=== PATIENT | female | born 1960 | race African-American/Black ===

== ENCOUNTER 2017-07-27 19:15 | Emergency (ER) | payer OTHER, SELFPAY ==
[2017-07-27 20:36] LABS: #Basophils 0.1 thou/uL (0.0-0.2); #Eosinphils 0.2 thou/uL (0.0-0.7); #Lymphocytes 3.2 thou/uL (1.20-3.40); #Monocytes 0.6 thou/uL (0.11-0.59); #Neutrophils 4.3 thou/uL (1.40-6.50); %Eosinophils 2.3 % (0.0-10.0); %Lymphocytes 38.2 % (21.0-51.0); %Monocytes 7.1 % (0.0-10.0); %Neutrophils 51.3 % (42.0-75.0); Hemoglobin 11.6 g/dL (12.0-16.0); Mean Corpuscular HGB CONC 32.8 g/dL (32.0-36.0); Mean Corpuscular Hemoglobin 30.2 pg (27.0-31.0); Mean Corpuscular Volume 91.9 fl (81.0-99.0); Mean Platelet Volume 8.3 fL (7.4-10.4); Platelet Count 245 thou/uL (130-400); RBC Distribution Width 12.5 % (11.5-14.5); Red Blood Cell (RBC) Count 3.86 mill/uL (4.20-5.40); White Blood Cell (WBC) Count 8.3 thou/uL (4.8-10.8)
[2017-07-27 20:43] LABS: ALT (SGPT) 21 U/L (8-55); AST (SGOT) 24 U/L (5-34); Albumin 3.9 g/dL (3.5-5.0); Alkaline Phosphatase 86 U/L (40-150); Anion Gap 14 mmol/L (10-20); BUN (Urea Nitrogen) 28 mg/dL (9.8-20.1); Bilirubin, Total 0.9 mg/dL (0.2-1.2); CK (CPK) 130 U/L (29-168); Calc. Creatinine Clearance 0 mL/min (70-130); Calcium 9.9 mg/dL (7.8-10.44); Carbon Dioxide 28 mmol/L (22-29); Chloride 102 mmol/L (98-107); Estimated GFR-MDRD 49; Globulin 3.7 g/dL (2.4-3.5); Glucose 151 mg/dL (70-105); Potassium 3.7 mmol/L (3.5-5.1); Protein, Total 7.6 g/dL (6.0-8.3); Sodium 140 mmol/L (136-145)
[2017-07-27 20:46] LABS: CKMB 1.8 ng/mL (0-6.6); Troponin I 0.049 ng/mL (< 0.028)
--- NOTE | 2017-07-27 20:47 | RAD ---
PORTABLE CHEST ONE VIEW: Date: 07-27-17 Time: 8:15 p.m. History: Chest pain, shortness of breath. FINDINGS/IMPRESSION: Comparison is made with exam of 10-18-16. The heart size is normal. No lobar consolidation, pneumothoraces or pleural effusions are seen. Mild pulmonary vascular congestion is seen. POS: [facility]
[2017-07-27 23:17] LABS: Troponin I 0.064 ng/mL (< 0.028)
== END 2017-07-28 00:10 | disposition home or self-care (01) ==
LOC: ERS 19:15
DX: R07.89 Other chest pain (principal); E11.9 Type 2 diabetes mellitus without complications; I11.0 Hypertensive heart disease with heart failure; I50.9 Heart failure, unspecified; Z79.4 Long term (current) use of insulin; Z79.899 Other long term (current) drug therapy
CPT/HCPCS: 36415; 71045; 80053; 82553; 83880; 84484; 85025; 93005

== ENCOUNTER 2017-08-20 09:09 | Emergency (ER) | payer OTHER, SELFPAY ==
[2017-08-20] MEDS ORDERED: Proparacaine 0.5% Opth 15 ML BOT ONE (09:35)
[2017-08-20] MEDS ORDERED: Fluorescein Opthalmic Strip ONE (09:36)
== END 2017-08-20 10:38 | disposition home or self-care (01) ==
LOC: ERS 09:09
DX: S05.01XA Injury of conjunctiva and corneal abrasion without foreign body, right eye, initial encounter (principal); I11.0 Hypertensive heart disease with heart failure; I50.9 Heart failure, unspecified; E11.9 Type 2 diabetes mellitus without complications; X58.XXXA Exposure to other specified factors, initial encounter
CPT/HCPCS: 99283

== ENCOUNTER 2018-05-18 20:15 | Observation (INO) | payer SELFPAY ==
[2018-05-18 20:59] LABS: #Eosinphils 0.2 thou/uL (0.0-0.7); #Lymphocytes 3.5 thou/uL (1.20-3.40); #Monocytes 0.6 thou/uL (0.11-0.59); #Neutrophils 3.7 thou/uL (1.40-6.50); %Basophils 0.4 % (0.0-1.0); %Eosinophils 2.9 % (0.0-10.0); %Lymphocytes 42.7 % (21.0-51.0); %Monocytes 7.9 % (0.0-10.0); %Neutrophils 46.2 % (42.0-75.0); Hemoglobin 11.5 g/dL (12.0-16.0); Mean Corpuscular HGB CONC 33.2 g/dL (32.0-36.0); Mean Corpuscular Hemoglobin 29.8 pg (27.0-31.0); Mean Corpuscular Volume 89.6 fL (78.0-98.0); Mean Platelet Volume 8.1 fL (7.4-10.4); Platelet Count 261 thou/uL (130-400); RBC Distribution Width 12.5 % (11.5-14.5); Red Blood Cell (RBC) Count 3.86 mill/uL (4.20-5.40); White Blood Cell (WBC) Count 8.1 thou/uL (4.8-10.8)
[2018-05-18 21:31] LABS: CKMB 1.9 ng/mL (0-6.6); Troponin I 0.042 ng/mL (< 0.028)
[2018-05-18 21:35] LABS: Anion Gap 14 mmol/L (10-20); BUN (Urea Nitrogen) 31 mg/dL (9.8-20.1); Calc. Creatinine Clearance 0 mL/min (70-130); Calcium 9.2 mg/dL (7.8-10.44); Carbon Dioxide 26 mmol/L (22-29); Chloride 102 mmol/L (98-107); Estimated GFR-MDRD 44; Glucose 169 mg/dL (70-105); Potassium 3.6 mmol/L (3.5-5.1); Sodium 138 mmol/L (136-145)
[2018-05-18] MEDS ORDERED: Albuterol Sulfate 2.5 mg/3 ml Neb ONE (21:40)
[2018-05-18] MEDS ORDERED: Ondansetron ODT 4 MG TAB PO PRN (23:26)
[2018-05-18] MEDS ORDERED: Acetaminophen 325 MG TAB PO PRN (23:26)
[2018-05-18] MEDS ORDERED: Ondansetron PF 4 MG/2 ML Vial IVP PRN (23:26)
[2018-05-18] MEDS ORDERED: Sodium Chloride 0.9% 1,000 ML IV SCH (23:30)
[2018-05-18] MEDS ORDERED: Dextrose 50% Abboject 50 ML SYRINGE SLOW IVP PRN (23:32)
[2018-05-18] MEDS ORDERED: Dextrose 5% in Water 1,000 ML IV PRN (23:32)
[2018-05-18] MEDS ORDERED: HumaLOG 300 UNITS/3 ML VIAL SC PRN ×2 (23:32)
[2018-05-19 00:42] LABS: Troponin I 0.057 ng/mL (< 0.028)
[2018-05-19 03:21] LABS: #Basophils 0.1 thou/uL (0.0-0.2); #Eosinphils 0.2 thou/uL (0.0-0.7); #Lymphocytes 2.7 thou/uL (1.20-3.40); #Monocytes 0.5 thou/uL (0.11-0.59); #Neutrophils 3.2 thou/uL (1.40-6.50); %Basophils 1.1 % (0.0-1.0); %Eosinophils 3.1 % (0.0-10.0); %Lymphocytes 39.8 % (21.0-51.0); %Neutrophils 48.1 % (42.0-75.0); Hemoglobin 11.3 g/dL (12.0-16.0); Mean Corpuscular HGB CONC 32.5 g/dL (32.0-36.0); Mean Corpuscular Hemoglobin 29.7 pg (27.0-31.0); Mean Corpuscular Volume 91.3 fL (78.0-98.0); Mean Platelet Volume 8.3 fL (7.4-10.4); Platelet Count 243 thou/uL (130-400); RBC Distribution Width 12.7 % (11.5-14.5); Red Blood Cell (RBC) Count 3.82 mill/uL (4.20-5.40); White Blood Cell (WBC) Count 6.7 thou/uL (4.8-10.8)
[2018-05-19 03:40] LABS: Anion Gap 13 mmol/L (10-20); BUN (Urea Nitrogen) Less than 4 mg/dL (9.8-20.1); Calc. Creatinine Clearance 91 mL/min (70-130); Calcium 9.3 mg/dL (7.8-10.44); Carbon Dioxide 27 mmol/L (22-29); Chloride 105 mmol/L (98-107); Estimated GFR-MDRD 73; Glucose 179 mg/dL (70-105); Magnesium 2.3 mg/dL (1.6-2.6); Phosphorus 3.8 mg/dL (2.3-4.7); Potassium 3.5 mmol/L (3.5-5.1); Sodium 141 mmol/L (136-145); Uric Acid 10.4 mg/dL (2.6-6.0)
[2018-05-19 03:43] LABS: Troponin I 0.058 ng/mL (< 0.028)
[2018-05-19 05:03] LABS: Creatinine, Urine 124.69 mg/dL (47-110)
[2018-05-19] MEDS: Nitroglycerin 2% Ointment 1 INCH/1 GM Packet TOP SCH ×2 (06:33→13:17)
--- NOTE | 2018-05-19 07:39 | RAD ---
CHEST ONE VIEW 05/18/18 COMPARISON: 07/27/17 HISTORY: Dyspnea. FINDINGS: Enlarged cardiac silhouette. Pulmonary vessels are prominent. Patchy interstitial opacities without c onsolidation or mass. No pleural effusion or pneumothorax. IMPRESSION: Cardiomegaly. Pulmonary vascular congestion. POS: [facility]
--- NOTE | 2018-05-19 07:41 | HP ---
CHIEF COMPLAINT: Chest tightness and pressure with associated shortness of breath. HISTORY OF PRESENT ILLNESS: This is a 58-year-old with past medical history of CHF, CKD stage 3, hyp ertension, diabetes mellitus type 2, presenting with intermittent chest pain and shortness of breath. Per patient, her shortness of breath has been ongoing for almost a week and now it has worsened to the point that with minimal activity patient gets shortness of breath. The patient states that she g ets severe shortness of breath even when she is tying her shoes. The patient states that she has his tory of heart failure and has been seen in the hospital in the past and an echo was done and during t hat time they found fluid around her heart. The patient states that she thinks that there might be s ome fluid buildup in her heart and that is probably what is giving her shortness of breath. The lety ent admits to having slight edema in her left lower extremity. The patient says that she thinks she might have fever, but denies that she has had any cough, chills, headaches, dizziness. REVIEW OF SYSTEMS: Positive for shortness of breath, subjective fever, left lower extremity edema, c hest pain, otherwise as documented in the HPI. All other systems were reviewed and are negative. PAST MEDICAL HISTORY: Include CHF, diabetes mellitus type 2, hypertension. PAST SURGICAL HISTORY: Hysterectomy. PSYCHIATRIC HISTORY: No psych history. FAMILY HISTORY: Reviewed and noncontributory to this visit. SOCIAL HISTORY: The patient drinks occasionally, denies any illicit drugs, and denies any smoking hi story. ALLERGIES: No known drug allergies. CURRENT MEDICATIONS: The patient takes, 1. Lisinopril/hydrochlorothiazide 10/12.5. 2. Metoprolol tartrate 25 mg. 3. NovoLog Mix 70/30, the patient takes 40 units subcu. 4. The patient takes metformin 1000 mg b.i.d. 5. Aspirin 81 mg. PHYSICAL EXAMINATION: VITAL SIGNS: 131/75, pulse is 64, respiratory rate of 18, temperature of 98.0, O2 sat of 99. GENERAL: The patient is awake, alert, oriented x3, not in acute distress. The patient is lying comf ortably in bed, not in apparent distress. HEENT: Normocephalic, atraumatic. Pupils are equally round and react to light. Extraocular movemen ts are intact. No scleral icterus. LUNGS: The patient has wheezes bilaterally at the posterior lung santiago. No rales, no rhonchi is ap preciated. CARDIAC: The patient has irregular heart rate. No murmurs appreciated. ABDOMEN: Obese abdomen, soft, nontender, nondistended. Positive bowel sounds in all quadrants. No masses. No pulsatile masses. No peritoneal signs. EXTREMITIES: The patient has 5/5 upper extremity strength and good pulses of the upper extremities. Lower extremity, patient has 5/5 strength and has trace edema at the left lower extremity. NEUROLOGIC: Cranial nerves II-XII grossly intact. No neurologic deficits noted. SKIN: Warm, dry, and intact. EKG shows rate of 68 with infrequent premature ventricular complexes and there is left ventricular hy pertrophy. ED COURSE: The patient received aspirin and DuoNeb treatment. LABORATORY DATA: WBC 8.1, hemoglobin 11.5, hematocrit 34.5, platelet count is 261. Electrolytes, so dium is 138, potassium is 3.6, chloride is 102, carbon dioxide is 26, anion gap of 14, BUN is 31, cre atinine is 1.48. Estimated GFR is 44, glucose is 169. Troponin is 0.057. ASSESSMENT AND PLAN: This is a 58-year-old female being admitted for, 1. Shortness of breath secondary to diastolic, acute on chronic congestive heart failure. At this p oint, we will keep the patient in the hospital and we will give patient DuoNeb treatment. We will ev entually diurese the patient; however, at this time, patient's creatinine is elevated at 1.48. There fore, we will just give the patient gentle hydration and will get an echo to evaluate the patient's h eart and will get chest x-ray and if chest x-ray shows any infiltrate or pleural effusion, then we wi ll consider diuresing the patient. 2. Acute kidney injury. At this point, patient's creatinine is 1.48. We have consulted Nephrology. We will give the patient gentle hydration at this time. 3. Diabetes mellitus type 2. We will continue sliding scale. We will start patient on her home reg imen. 4. Hypertension. We will continue the patient on her home medications. We will watch blood pressur e closely. 5. Deep venous thrombosis and Gastrointestinal prophylaxis. This case has been dictated by Dr. Scooter Kilpatrick on patient Perla Haney.
[2018-05-19] MEDS ORDERED: INSULIN DETEMIR SC SCH (09:00)
[2018-05-19] MEDS ORDERED: Aspirin 325 mg Enteric Coated Tablet PO SCH (09:00)
[2018-05-19] MEDS ORDERED: Enoxaparin Sodium 30 MG/0.3 ML SYRINGE SC SCH (09:00)
[2018-05-19] MEDS ORDERED: Metoprolol Tartrate 25 MG TAB PO SCH (09:00)
[2018-05-19] MEDS ORDERED: Non-Formulary Item 1 EACH (Omeprazole [Omeprazole] 20 MG) PO SCH (09:00)
[2018-05-19] MEDS ORDERED: Non-Formulary Item 1 EACH (Multivitamin/Iron/Folic Acid [Centrum Complete Multivitamin] 1 PO SCH (09:00)
[2018-05-19] MEDS ORDERED: Insulin Glargine 17 UNITS in Pre-Filled Syringe 1 EACH SC SCH (09:00)
[2018-05-19] MEDS ORDERED: Multivitamin W/ Minerals 1 TAB PO SCH (09:00)
[2018-05-19 12:19] VITALS: BP 150/79; TEMP 98.2
--- NOTE | 2018-05-19 13:54 | PDOC.PN ---
- Subjective Encounter Start Date: 05/19/18 Encounter Start Time: 11:00 Feeling better. Breathing better. No complaints. - Objective Resuscitation Status: Resuscitation Status FULL:Full Resuscitation Vital Signs & Weight: Vital Signs (12 hours) Temp Pulse Resp BP Pulse Ox 05/19/18 10:57 98.2 F 65 20 150/79 H 99 05/19/18 07:48 97.7 F 77 24 H 161/84 H 98 Weight Weight 193 lb 14.4 oz I&O: 05/18/18 05/19/18 05/20/18 06:59 06:59 06:59 Intake Total 550 Output Total 450 Balance 100 Result Diagrams: 05/19/18 02:53 05/19/18 02:53 Additional Labs: Accuchecks 05/19/18 11:00 POC Glucose 230 H Phys Exam - Physical Examination Constitutional: NAD Respiratory: no wheezing, no rales, no rhonchi Cardiovascular: RRR, no rub I/ murmur RUSB. Gastrointestinal: soft, non-tender, no distention, positive bowel sounds Musculoskeletal: no edema Psychiatric: normal affect, A&O x 3 Dx/Plan (1) Acute on chronic diastolic (congestive) heart failure Code(s): I50.33 - ACUTE ON CHRONIC DIASTOLIC (CONGESTIVE) HEART FAILURE Status : Acute Plan: Symptomatically improved. Did not diurese, but actually gave some fluids. Lungs are clear and she is breathing well now. Consulting Cardiology. Discussed with Dr. Shen. Repeat echo pending. Comment: Manifest as pulmonary edema and SOB. (2) Demand ischemia Code(s): I24.8 - OTHER FORMS OF ACUTE ISCHEMIC HEART DISEASE Status: Acute Comment: Modest elevation of the troponins. May be secondary to the diastolic CHF. Cards consulted. (3) Chest pain Code(s): R07.9 - CHEST PAIN, UNSPECIFIED Status: Acute Comment: Modest trop elevation. Cards consulted. (4) CKD (chronic kidney disease), stage III Code(s): N18.3 - CHRONIC KIDNEY DISEASE, STAGE 3 (MODERATE) Status: Acute Comment: Creatinine better with some fluids. (5) DM2 (diabetes mellitus, type 2) Status: Chronic (6) HLD (hyperlipidemia) Code(s): E78.5 - HYPERLIPIDEMIA, UNSPECIFIED Status: Chronic (7) HTN (hypertension) Code(s): I10 - ESSENTIAL (PRIMARY) HYPERTENSION Status: Chronic Comment: Well controlled - Plan * Await echo results and cardiology consult.
[2018-05-19] MEDS ORDERED: Furosemide 40 MG/4 ML VIAL SLOW IVP SCH (14:00)
--- NOTE | 2018-05-19 14:14 | CON ---
DATE OF CONSULTATION: 05/19/2018 REASON FOR CONSULTATION: Shortness of breath. HISTORY OF PRESENT ILLNESS: Ms. Haney is a very pleasant 58-year-old female who com es to the hospital for shortness of breath. She started feeling short of breath for the last week, s lowly kept getting worse. She will get short of breath with any exertion. She decided to come in as this is the same way she presented last time she was here for diastolic heart failure. She was foun d to have pulmonary edema and admitted for this. She denies any chest tightness, just a little dull p ain in the left upper chest which is the same pain she had before when she had heart failure. She hickman s had a heart catheterization in the past that showed mild coronary artery disease. She otherwise is feeling much better today. PAST MEDICAL HISTORY: 1. Diastolic heart failure. 2. Type 2 diabetes. 3. Hypertension. 4. Mild coronary artery. PAST SURGICAL HISTORY: 1. Hysterectomy. 2. Heart catheterization as above. FAMILY HISTORY: Noncontributory. SOCIAL HISTORY: Social alcohol use, no drug use, no tobacco. OUTPATIENT MEDICATIONS: 1. Lisinopril/hydrochlorothiazide 10/12.5 mg a day. 2. Metoprolol tartrate 25 mg b.i.d. 3. NovoLog 70/30. 4. Metformin 1000 mg b.i.d. 5. Aspirin 81 a day. ALLERGIES: No known drug allergies. REVIEW OF SYSTEMS: A 12-point review of systems was done and is all negative unless stated in the hi story of present illness. PHYSICAL EXAMINATION: VITAL SIGNS: Temperature 98.2, pulse 65, respiration rate 20, satting 99% on room air, blood pressur e 150/79. GENERAL: Awake, alert, oriented x3, in no distress. HEENT: Normocephalic, atraumatic. NECK: Supple. LUNGS: Clear. CARDIOVASCULAR: S1, S2, no S3, S4, no murmurs. ABDOMEN: Soft. Positive bowel sounds. EXTREMITIES: 1+ edema. SKIN: Warm and dry. LABORATORY WORK: Reviewed. CBC, chemistries were reviewed. Troponin was 0.04, 0.05, 0.05 with norm al CK-MB, consistent with her previous admission for diastolic heart failure. Echocardiogram was reviewed. LV function is normal at 55-60% with a dilated left atrium and mild mod erate aortic regurgitation and mild mitral regurgitation. Diffuse T waves precludes diastolic functi on relation with probably diastolic dysfunction is present. Chest x-ray was reviewed. Cardiomegaly with pulmonary vascular congestion. ASSESSMENT AND PLAN: 1. Acute on chronic diastolic heart failure. 2. Moderate aortic insufficiency. 3. Acute kidney injury on chronic kidney disease. PLAN: 1. I will give one dose of IV Lasix to try to get a little bit of fluid out of her. We will increas e her lisinopril/HCTZ to 20/12.5 to keep her blood pressure better controlled. 2. She should be able to go home either later today or tomorrow. Thank you letting us participate in the care of your patient. We will follow.
--- NOTE | 2018-05-19 21:36 | CON ---
DATE OF CONSULTATION: 05/19/2018 CONSULTING PHYSICIAN: Scooter Kilpatrick DO REASON FOR CONSULTATION: Acute kidney injury. REASON FOR ADMISSION: Chest pain. HISTORY OF PRESENT ILLNESS: This is a 58-year-old -[place] female with a history of CHF, type 2 diabetes, hypertension who came to the hospital with chest pain and is being evaluated. Nephrology is consulted for acute kidney injury. She was given IV fluids and is better and no nausea or vomiting. No diarrhea reported. PAST MEDICAL HISTORY: Positive for CHF, CKD, type 2 diabetes, hypertension. PAST SURGICAL HISTORY: Hysterectomy. HOME MEDICATIONS: Lisinopril, hydrochlorothiazide, metoprolol, NovoLog, metformin, aspirin. ALLERGIES: No known drug allergies. SOCIAL HISTORY: No smoking, alcohol, illicit drug abuse. FAMILY HISTORY: No history of kidney disease. REVIEW OF SYSTEMS: The following complete review of systems was negative, unless otherwise mentioned in the HPI or below: Constitutional: Weight loss or gain, ability to conduct usual activities. Skin: Rash, itching. Eyes: Double vision, pain. ENT/Mouth: Nose bleeding, neck stiffness, pain, tenderness. Cardiovascular: Palpitations, dyspnea on exertion, orthopnea. Respiratory: Shortness of breath, wheezing, cough, hemoptysis, fever, or night sweats. Gastrointestinal: Poor appetite, abdominal pain, heartburn, nausea, vomiting, constipation, or diarrhea. Genitourinary: Urgency, frequency, dysuria, nocturia. Musculoskeletal: Pain, swelling. Neurologic/Psychiatric: Anxiety, depression. Allergy/Immunologic: Skin rash, bleeding tendency. PHYSICAL EXAMINATION: GENERAL: This is an obese female in no apparent distress. VITAL SIGNS: Temperature 98.2, pulse 65, respiratory rate 18, blood pressure 153/79. Musculoskeletal : No tenderness, No edema HEENT: Atraumatic normocephalic Neck: Supple Cardiovascular: S1S2 heard, Rate and rhythm regular Respiratory: Clear to auscultation Gastrointestinal: Abdomen is soft Dermatologic : No skin rash Neurologic: Alert and awake and oriented X3 No focal neurologic deficits. Moving all the extremities. Psychiatric: Mood and affect normal LABORATORY DATA: Potassium is 3.5, BUN is less than 4, creatinine is 0.9. ASSESSMENT AND PLAN: 1. Acute kidney injury, much better, most likely volume depletion. 2. Edema, controlled. 3. Hypertension, stable. 4. History of type 2 diabetes. 5. Chest pain per primary team and Cardiology. 6. Renal function is better. I will sign off. MTDD
--- NOTE | 2018-05-20 19:47 | DIS ---
DATE OF ADMISSION: 05/18/2018 DATE OF DISCHARGE: 05/19/2018 DISCHARGE DIAGNOSES: 1. Acute on chronic diastolic heart failure. 2. Demand ischemia. 3. Chest pain. 4. Chronic kidney disease stage 3. 5. Diabetes mellitus. 6. Hyperlipidemia. 7. Hypertension. 8. Acute on chronic renal insufficiency. CONSULTATIONS: Dr. Shen in Cardiology and Dr. Morrissey of Nephrology. For full history, please see dictated H&P by Dr. Marcano dated 05/18/2018. HOSPITAL COURSE: Briefly however, this patient is a 58-year-old female with a history of diastolic h eart failure and chronic kidney disease stage 3, who presented with intermittent chest pain and short ness of breath for approximately 1 week. She reported the chest pain is feeling like a heaviness or pressure in her chest area. Her initial workup was notable for troponin of 0.057 and some wheezing o n exam. EKG with the rate of 68, some infrequent PVCs and some LVH. Chest x-ray showed cardiomegaly with some pulmonary vascular congestion and her creatinine was 1.48, which was slightly above her ba seline, which is around 1.35-1.45. HOSPITAL COURSE: The patient was admitted to the hospital on telemetry. She had serial troponins wh ich were essentially flat. She had some fluid resuscitation and her BUN and creatinine improved to l ess than 4 and 0.96. The patient was seen in consultation by Nephrology and felt the patient simply responded well to the fluids. She was also seen by Cardiology in consultation. An echocardiogram wa s performed. Echo revealed an EF of 55%-60% with moderately dilated left atrium, moderately enlarged right atrium. Dr. Shen also felt the patient had some moderate aortic insufficiency and acute on chronic diastolic heart failure. He subsequently diuresed the patient and made some adjustment in he r medication dose. With that, he felt the patient was stable for discharge. The patient felt signif icantly better and was eager to go home. DISPOSITION: The patient is discharged to home. Her activity is as tolerated. She will be on a hea rt healthy diet. DISCHARGE MEDICATIONS: She is on metoprolol 25 b.i.d., aspirin 81 daily, multivitamin 1 daily, omepr azole 20 mg every day, albuterol p.r.n., lisinopril/HCTZ 20/25 one p.o. daily, Lasix 20 mg every day, NovoLog 70/30, 40 units at bedtime, metformin 500 mg b.i.d. She is to follow up with Christina Real and also with Dr. Shen. She can return to emergency depart ment should she have any problems prior to that time.
== END 2018-05-19 17:19 | disposition home or self-care (01) ==
LOC: ERS 20:15 → 2SW 05-19 00:04
PROVIDERS: ADMIT Internal Medicine; ATTEND Internal Medicine
DX: I12.9 Hypertensive chronic kidney disease with stage 1 through stage 4 chronic kidney disease, or unspecified chronic kidney disease (principal); E11.22 Type 2 diabetes mellitus with diabetic chronic kidney disease; N18.3 Chronic kidney disease, stage 3 (moderate); I50.33 Acute on chronic diastolic (congestive) heart failure; N17.9 Acute kidney failure, unspecified; I24.8 Other forms of acute ischemic heart disease; E78.5 Hyperlipidemia, unspecified; I35.1 Nonrheumatic aortic (valve) insufficiency; E66.9 Obesity, unspecified; Z68.35 Body mass index [BMI] 35.0-35.9, adult; Z79.4 Long term (current) use of insulin; Z79.82 Long term (current) use of aspirin; Z79.899 Other long term (current) drug therapy
CPT/HCPCS: 36415; 36416; 71045; 80048; 82553; 82570; 83735; 84100; 84300; 84484; 84550; 85025; 90471; 90686; 93005; 93306; 94640; 94760; 96361; 96372; 96374; G0008; G0378; J1650; J1940; J7611; J7620

== ENCOUNTER 2018-06-20 19:53 | Emergency (ER) | payer SELFPAY ==
[2018-06-20] MEDS ORDERED: HYDROcodone/Acetaminophen 5/325 mg Tablet ONE (20:12)
--- NOTE | 2018-06-20 21:52 | RAD ---
RADIOGRAPH RIGHT ANKLE 3 VIEWS: 06/20/18 at 8:37 p.m. HISTORY: 58-year-old female status post acute traumatic injury to the right ankle last week. Persistent posttr aumatic pain. FINDINGS: No fracture or subluxation. Ankle mortise is symmetrical. Talar dome is maintained. IMPRESSION: No fracture. POS: [facility]
--- NOTE | 2018-06-20 21:54 | RAD ---
RIGHT FOOT THREE VIEWS: 06/20/18 HISTORY: Trauma to foot. There are arthritic changes of the foot. This includes arthritic changes of the first metatarsophalan geal joint. Prominent calcaneal spurs and some arthritic changes of the base of the metatarsals. Ther e is no acute bony process seen. IMPRESSION: Arthritic changes of the foot. POS: [facility]
== END 2018-06-20 20:57 | disposition home or self-care (01) ==
LOC: SCSER 19:53
DX: S93.601A Unspecified sprain of right foot, initial encounter (principal); E11.9 Type 2 diabetes mellitus without complications; I11.0 Hypertensive heart disease with heart failure; I50.9 Heart failure, unspecified; W22.8XXA Striking against or struck by other objects, initial encounter

== ENCOUNTER 2019-02-13 07:57 | Emergency (ER) | payer SELFPAY ==
--- NOTE | 2019-02-13 08:35 | CT ---
CT Stone Protocol History: Right lower quadrant pain Comparison: CT Stone protocol 2013 Findings: There is bibasilar scarring with bronchiectasis. There is a round nodule along the lingula which is similar to 2013 examination therefore likely benign. No nephroureterolithiasis or hydroureteronephrosis. No secondary evidence of a recently passed stone. No dilated loops of large or small bowel. Mild vascular calcifications of the aorta. Noncontrast evaluation of the liver, pancreas, gallbladder are unremarkable. Mild acetabular osteophyte formation. Advanced facet arthropathy lower lumbar spine. Impression: 1. No nephroureterolithiasis or hydroureteronephrosis. No secondary evidence of a recently passed sto ne. 2. No acute inflammatory process within the abdomen or pelvis.
[2019-02-13 08:43] LABS: #Basophils 0.1 thou/uL (0.0-0.2); #Eosinphils 0.2 thou/uL (0.0-0.7); #Lymphocytes 2.6 thou/uL (1.20-3.40); #Monocytes 0.7 thou/uL (0.11-0.59); #Neutrophils 3.7 thou/uL (1.40-6.50); %Basophils 1.5 % (0.0-1.0); %Eosinophils 2.9 % (0.0-10.0); %Lymphocytes 35.8 % (21.0-51.0); %Monocytes 9.8 % (0.0-10.0); %Neutrophils 49.9 % (42.0-75.0); Hemoglobin 12.7 g/dL (12.0-16.0); Mean Corpuscular HGB CONC 33.2 g/dL (32.0-36.0); Mean Corpuscular Hemoglobin 30.2 pg (27.0-31.0); Mean Platelet Volume 7.4 fL (7.4-10.4); Platelet Count 336 thou/uL (130-400); RBC Distribution Width 13.1 % (11.5-14.5); White Blood Cell (WBC) Count 7.4 thou/uL (4.8-10.8)
[2019-02-13 09:05] LABS: ALT (SGPT) 21 U/L (8-55); AST (SGOT) 17 U/L (5-34); Albumin 4.2 g/dL (3.5-5.0); Alkaline Phosphatase 93 U/L (40-150); Anion Gap 13 mmol/L (10-20); BUN (Urea Nitrogen) 26 mg/dL (9.8-20.1); Bilirubin, Total 0.5 mg/dL (0.2-1.2); Calc. Creatinine Clearance 0 mL/min (70-130); Calcium 9.6 mg/dL (7.8-10.44); Carbon Dioxide 25 mmol/L (22-29); Chloride 108 mmol/L (98-107); Estimated GFR-MDRD 47; Globulin 3.8 g/dL (2.4-3.5); Glucose 86 mg/dL (70-105); Lipase 54 U/L (8-78); Potassium 4.3 mmol/L (3.5-5.1); Sodium 142 mmol/L (136-145)
[2019-02-13 09:30] LABS: Bilirubin Small (Negative); Blood, Urine Trace (Negative); Clarity Cloudy (Clear); Glucose, Urine (Dipstick) Negative (Negative); Leukocyte Negative (Negative); Nitrite Negative (Negative); Protein, Urine (Dipstick) 30 mg/dL (Neg-Trace)
[2019-02-13 09:34] LABS: Bacteria/HPF 1+ HPF (None Seen)
[2019-02-13 09:35] LABS: Mucous/LPF 1+ LPF (<2+)
[2019-02-14 23:05] LABS: Chlamydia by PCR Not Detected (NotDetected); GC by PCR Not Detected (NotDetected)
== END 2019-02-13 10:30 | disposition home or self-care (01) ==
LOC: SCSER 07:57
DX: K52.9 Noninfective gastroenteritis and colitis, unspecified (principal); E86.0 Dehydration; I11.0 Hypertensive heart disease with heart failure; I50.9 Heart failure, unspecified; E11.9 Type 2 diabetes mellitus without complications; Z79.899 Other long term (current) drug therapy; Z79.4 Long term (current) use of insulin; Z79.82 Long term (current) use of aspirin
CPT/HCPCS: 74176; 80053; 81003; 81015; 83605; 83690; 85025; 87086; 87480; 87491; 87510; 87591; 87660; 96360

== ENCOUNTER 2019-04-01 18:50 | Emergency (ER) | payer SELFPAY | END 2019-04-01 19:25 | disposition home or self-care (01) | LOC: SCSER 18:50 | DX: M43.6 Torticollis (principal); I11.0 Hypertensive heart disease with heart failure; I50.9 Heart failure, unspecified; E11.9 Type 2 diabetes mellitus without complications; Z79.82 Long term (current) use of aspirin; Z79.4 Long term (current) use of insulin; Z79.899 Other long term (current) drug therapy | CPT/HCPCS: 99283 ==

== ENCOUNTER 2019-06-15 19:04 | Emergency (ER) | payer SELFPAY ==
--- NOTE | 2019-06-15 19:40 | RAD ---
RADIOGRAPH CHEST 2 VIEW: DATE: 06/15/2019 TIME: 7:27 PM HISTORY: 59-year-old female with productive cough COMPARISON: 05/18/2018 FINDINGS: Prominent interstitial markings. Pulmonary scar at left lower lobe. No cardiomegaly, pleural effusion , or pneumothorax. No major interval change. IMPRESSION: 1. Prominent interstitial markings bilaterally are probably chronic. 2. Left lower lobe pulmonary scar. 3. No consolidation.
[2019-06-15 19:42] LABS: #Basophils 0.1 thou/uL (0.0-0.2); #Eosinphils 0.2 thou/uL (0.0-0.7); #Lymphocytes 3.7 thou/uL (1.20-3.40); #Monocytes 0.7 thou/uL (0.11-0.59); #Neutrophils 4.2 thou/uL (1.40-6.50); %Basophils 0.9 % (0.0-1.0); %Eosinophils 2.6 % (0.0-10.0); %Lymphocytes 41.6 % (21.0-51.0); %Monocytes 8.3 % (0.0-10.0); %Neutrophils 46.6 % (42.0-75.0); Hemoglobin 12.6 g/dL (12.0-16.0); Mean Corpuscular HGB CONC 32.7 g/dL (32.0-36.0); Mean Corpuscular Hemoglobin 29.6 pg (27.0-31.0); Mean Corpuscular Volume 90.7 fL (78.0-98.0); Mean Platelet Volume 6.8 fL (7.4-10.4); Platelet Count 275 thou/uL (130-400); RBC Distribution Width 12.9 % (11.5-14.5); Red Blood Cell (RBC) Count 4.26 mill/uL (4.20-5.40)
[2019-06-15 19:59] LABS: ALT (SGPT) 13 U/L (8-55); AST (SGOT) 17 U/L (5-34); Albumin 4.1 g/dL (3.5-5.0); Alkaline Phosphatase 94 U/L (40-110); Anion Gap 15 mmol/L (10-20); BUN (Urea Nitrogen) 31 mg/dL (9.8-20.1); Bilirubin, Total 0.6 mg/dL (0.2-1.2); Calc. Creatinine Clearance 0 mL/min (70-130); Calcium 9.7 mg/dL (7.8-10.44); Carbon Dioxide 27 mmol/L (22-29); Chloride 104 mmol/L (98-107); Estimated GFR-MDRD 50; Globulin 3.8 g/dL (2.4-3.5); Glucose 90 mg/dL (70-105); Protein, Total 7.9 g/dL (6.0-8.3); Sodium 142 mmol/L (136-145)
== END 2019-06-15 20:13 | disposition home or self-care (01) ==
LOC: SCSER 19:04
DX: H00.014 Hordeolum externum left upper eyelid (principal); I50.9 Heart failure, unspecified; Z79.82 Long term (current) use of aspirin; Z79.899 Other long term (current) drug therapy
CPT/HCPCS: 71046; 80053; 83880; 85025

== ENCOUNTER 2021-06-26 16:46 | Inpatient (IN) | payer MEDICARE, MEDICAID ==
[2021-06-26 17:18] LABS: #Basophils 0.1 thou/uL (0.0-0.2); #Eosinphils 0.2 thou/uL (0.0-0.7); #Lymphocytes 1.6 thou/uL (1.20-3.40); #Monocytes 0.7 thou/uL (0.11-0.59); #Neutrophils 4.3 thou/uL (1.40-6.50); %Basophils 0.8 % (0.0-1.0); %Eosinophils 2.3 % (0.0-10.0); %Lymphocytes 23.8 % (21.0-51.0); %Monocytes 9.7 % (0.0-10.0); %Neutrophils 63.4 % (42.0-75.0); Hemoglobin 11.5 g/dL (12.0-16.0); Mean Corpuscular HGB CONC 33.8 g/dL (32.0-36.0); Mean Corpuscular Hemoglobin 30.9 pg (27.0-31.0); Mean Corpuscular Volume 91.4 fL (78.0-98.0); Mean Platelet Volume 7.1 fL (7.4-10.4); Platelet Count 270 thou/uL (130-400); RBC Distribution Width 13.5 % (11.5-14.5); Red Blood Cell (RBC) Count 3.71 mill/uL (4.20-5.40); White Blood Cell (WBC) Count 6.8 thou/uL (4.8-10.8)
[2021-06-26 17:41] LABS: ALT (SGPT) 59 U/L (8-55); AST (SGOT) 38 U/L (5-34); Albumin 3.8 g/dL (3.5-5.0); Alkaline Phosphatase 78 U/L (40-110); Anion Gap 11 mmol/L (10-20); BUN (Urea Nitrogen) 29 mg/dL (9.8-20.1); Bilirubin, Total 0.7 mg/dL (0.2-1.2); Calc. Creatinine Clearance 0 mL/min (70-130); Calcium 9.5 mg/dL (7.8-10.44); Carbon Dioxide 29 mmol/L (22-29); Chloride 102 mmol/L (98-107); Globulin 3.6 g/dL (2.4-3.5); Potassium 3.9 mmol/L (3.5-5.1); Protein, Total 7.4 g/dL (6.0-8.3); Sodium 138 mmol/L (136-145)
[2021-06-26 17:54] LABS: Glucose 47 mg/dL (70-105)
[2021-06-26] MEDS ORDERED: Furosemide 40 MG/4 ML VIAL ONE (21:02)
[2021-06-26 21:23] LABS: Troponin I 0.025 ng/mL (< 0.028)
[2021-06-26] MEDS ORDERED: Acetaminophen 325 MG TAB PO PRN (22:00)
[2021-06-26 22:55] VITALS: BMI 34.9
[2021-06-26 23:44] LABS: Troponin I 0.027 ng/mL (< 0.028)
[2021-06-27] MEDS ORDERED: Dextrose 5% in Water 1,000 ML IV PRN ×2 (00:30→01:04)
[2021-06-27] MEDS ORDERED: Dextrose 50% Abboject 50 ML SYRINGE IVP PRN (00:30)
[2021-06-27] MEDS ORDERED: HumaLOG 300 UNITS/3 ML VIAL SC PRN ×2 (00:30)
[2021-06-27] MEDS ORDERED: Bisacodyl 5 MG TAB PO PRN (01:04)
[2021-06-27] MEDS ORDERED: Senokot S 8.6-50 MG TAB PO PRN (01:04)
[2021-06-27] MEDS ORDERED: Ondansetron PF 4 MG/2 ML Vial IVP PRN (01:04)
[2021-06-27] MEDS ORDERED: Melatonin 3 MG TAB PO PRN (01:13)
[2021-06-27] MEDS ORDERED: Heparin 5,000 UNITS/ML VIAL SC SCH (01:30)
[2021-06-27] MEDS ORDERED: ALBUTEROL SULFATE 90 MCG PO PRN (01:31)
[2021-06-27] MEDS ORDERED: Albuterol Sulfate 2.5 mg/3 ml Neb NEB PRN (01:56)
[2021-06-27] MEDS ORDERED: hydrALAZINE 20 MG/ML VIAL SLOW IVP PRN (02:36)
[2021-06-27] MEDS: Furosemide 40 MG/4 ML VIAL SLOW IVP SCH ×2 (05:42→16:21)
[2021-06-27] MEDS: Morphine 4 MG/ML VIAL SLOW IVP PRN ×2 (09:41→21:05)
[2021-06-27] MEDS: Famotidine/PF 20 mg/2ml Vial SLOW IVP SCH (09:41)
[2021-06-27] MEDS: Heparin 5,000 UNITS/ML VIAL SC SCH ×3 (09:41→21:01)
[2021-06-27] MEDS: Metoprolol Tartrate 25 MG TAB PO SCH ×2 (09:43→21:05)
[2021-06-27 10:20] LABS: #Basophils 0.1 thou/uL (0.0-0.2); #Eosinphils 0.2 thou/uL (0.0-0.7); #Lymphocytes 1.7 thou/uL (1.20-3.40); #Monocytes 0.7 thou/uL (0.11-0.59); #Neutrophils 3.9 thou/uL (1.40-6.50); %Basophils 1.2 % (0.0-1.0); %Eosinophils 3.4 % (0.0-10.0); %Lymphocytes 25.3 % (21.0-51.0); %Monocytes 10.8 % (0.0-10.0); %Neutrophils 59.4 % (42.0-75.0); Hemoglobin 12.1 g/dL (12.0-16.0); Mean Corpuscular HGB CONC 33.5 g/dL (32.0-36.0); Mean Corpuscular Hemoglobin 30.5 pg (27.0-31.0); Mean Corpuscular Volume 91.3 fL (78.0-98.0); Mean Platelet Volume 7.2 fL (7.4-10.4); Platelet Count 264 thou/uL (130-400); RBC Distribution Width 13.4 % (11.5-14.5); Red Blood Cell (RBC) Count 3.96 mill/uL (4.20-5.40); White Blood Cell (WBC) Count 6.5 thou/uL (4.8-10.8)
[2021-06-27 10:29] LABS: Hemoglobin A1c 8.4 % (4.0-6.0)
[2021-06-27 10:42] LABS: ALT (SGPT) 49 U/L (8-55); AST (SGOT) 25 U/L (5-34); Albumin 3.8 g/dL (3.5-5.0); Alkaline Phosphatase 79 U/L (40-110); Anion Gap 16 mmol/L (10-20); BUN (Urea Nitrogen) 25 mg/dL (9.8-20.1); Bilirubin, Total 0.9 mg/dL (0.2-1.2); Calc. Creatinine Clearance 65 mL/min (70-130); Calcium 9.6 mg/dL (7.8-10.44); Carbon Dioxide 27 mmol/L (22-29); Chloride 98 mmol/L (98-107); Globulin 3.7 g/dL (2.4-3.5); Glucose 129 mg/dL (70-105); Potassium 3.8 mmol/L (3.5-5.1); Protein, Total 7.5 g/dL (6.0-8.3); Sodium 137 mmol/L (136-145)
[2021-06-27 17:12] LABS: Bacteria/HPF None Seen HPF (None Seen); Bilirubin Negative (Negative); Blood, Urine Negative (Negative); Clarity Clear (Clear); Glucose, Urine (Dipstick) Normal (Negative); Ketone, Urine Negative (Negative); Leukocyte Negative Leu/uL (Negative); Nitrite Negative (Negative); Protein, Urine (Dipstick) Negative (Neg-Trace); RBC/HPF 0-3 HPF (0-3); Specific Gravity, Urine 1.012 (1.002-1.036); Squamous Epithelial 0-3 HPF (0-3); WBC/HPF 0-3 HPF (0-3); pH, Urine 6.5 (5.0-9.0)
[2021-06-27 17:14] LABS: Urine Culture Reflex No No
[2021-06-27 18:16] LABS: SARS-CoV-2 PCR by NAA Not Detected (NotDetected)
[2021-06-27] MEDS ORDERED: HumuLIN 70/30 (300 UNITS/3 ML VIAL) SC SCH (21:00)
[2021-06-28] MEDS: Furosemide 40 MG/4 ML VIAL SLOW IVP SCH (05:48)
[2021-06-28 08:22] VITALS: BP 146/75; TEMP 98.6
[2021-06-28] MEDS: Famotidine/PF 20 mg/2ml Vial SLOW IVP SCH (09:52)
[2021-06-28] MEDS: Heparin 5,000 UNITS/ML VIAL SC SCH (09:52)
[2021-06-28] MEDS: Metoprolol Tartrate 25 MG TAB PO SCH (09:52)
[2021-06-28 11:06] LABS: #Basophils 0.1 thou/uL (0.0-0.2); #Eosinphils 0.2 thou/uL (0.0-0.7); #Lymphocytes 2.3 thou/uL (1.20-3.40); #Neutrophils 3.8 thou/uL (1.40-6.50); %Basophils 1.5 % (0.0-1.0); %Eosinophils 3.1 % (0.0-10.0); %Lymphocytes 30.5 % (21.0-51.0); %Monocytes 13.7 % (0.0-10.0); %Neutrophils 51.2 % (42.0-75.0); Hemoglobin 13.7 g/dL (12.0-16.0); Mean Corpuscular HGB CONC 33.9 g/dL (32.0-36.0); Mean Corpuscular Hemoglobin 31.1 pg (27.0-31.0); Mean Corpuscular Volume 91.6 fL (78.0-98.0); Mean Platelet Volume 7.3 fL (7.4-10.4); Platelet Count 305 thou/uL (130-400); RBC Distribution Width 13.2 % (11.5-14.5); Red Blood Cell (RBC) Count 4.42 mill/uL (4.20-5.40); White Blood Cell (WBC) Count 7.4 thou/uL (4.8-10.8)
[2021-06-28 11:30] LABS: Anion Gap 15 mmol/L (10-20); BUN (Urea Nitrogen) 27 mg/dL (9.8-20.1); Calc. Creatinine Clearance 60 mL/min (70-130); Calcium 9.9 mg/dL (7.8-10.44); Carbon Dioxide 32 mmol/L (22-29); Chloride 93 mmol/L (98-107); Glucose 105 mg/dL (70-105); Potassium 4.1 mmol/L (3.5-5.1); Sodium 136 mmol/L (136-145)
== END 2021-06-28 10:50 | disposition home or self-care (01) | DRG 291 ==
LOC: ERS 16:46 → 2NO 20:26
PROVIDERS: ADMIT Student in an Organized Health Care Education/Training Program; ATTEND Internal Medicine
DX: I13.0 Hypertensive heart and chronic kidney disease with heart failure and stage 1 through stage 4 chronic kidney disease, or unspecified chronic kidney disease (principal); Z20.822 Contact with and (suspected) exposure to COVID-19; I50.33 Acute on chronic diastolic (congestive) heart failure; J96.01 Acute respiratory failure with hypoxia; N17.9 Acute kidney failure, unspecified; E66.9 Obesity, unspecified; K44.9 Diaphragmatic hernia without obstruction or gangrene; G47.30 Sleep apnea, unspecified; K21.9 Gastro-esophageal reflux disease without esophagitis; J44.9 Chronic obstructive pulmonary disease, unspecified; N18.31 Chronic kidney disease, stage 3a; E11.649 Type 2 diabetes mellitus with hypoglycemia without coma; E11.22 Type 2 diabetes mellitus with diabetic chronic kidney disease; E78.2 Mixed hyperlipidemia; I08.3 Combined rheumatic disorders of mitral, aortic and tricuspid valves; R10.32 Left lower quadrant pain; Z68.33 Body mass index [BMI] 33.0-33.9, adult; Z90.710 Acquired absence of both cervix and uterus; Z79.899 Other long term (current) drug therapy; Z79.82 Long term (current) use of aspirin; Z79.4 Long term (current) use of insulin; Z79.84 Long term (current) use of oral hypoglycemic drugs
CPT/HCPCS: 36415; 36416; 71045; 74176; 80048; 80053; 81001; 83036; 83880; 84443; 84484; 85025; 93005; 93306; 96374; J1644; J1815; J1940; J2270; S0028; U0003; U0005

== ENCOUNTER 2021-08-04 11:18 | Emergency (ER) | payer MEDICARE, MEDICAID ==
[2021-08-04] MEDS ORDERED: Boostrix 0.5 ML (Tdap) VIAL ONE (16:19)
== END 2021-08-04 16:31 | disposition home or self-care (01) ==
LOC: ERS 11:18
DX: L02.413 Cutaneous abscess of right upper limb (principal); I11.0 Hypertensive heart disease with heart failure; I50.9 Heart failure, unspecified; K21.9 Gastro-esophageal reflux disease without esophagitis; E11.9 Type 2 diabetes mellitus without complications; Z79.84 Long term (current) use of oral hypoglycemic drugs; Z79.4 Long term (current) use of insulin
CPT/HCPCS: 10060; 90471; 90715

== ENCOUNTER 2021-11-17 16:00 | Outpatient (CLI) | payer MEDICARE, MEDICAID | END 2021-11-17 16:01 | disposition home or self-care (01) | LOC: SLEEPLAB 16:00 | PROVIDERS: ATTEND Internal Medicine Critical Care Medicine | DX: G47.33 Obstructive sleep apnea (adult) (pediatric) (principal); I10 Essential (primary) hypertension | CPT/HCPCS: 95811 ==

== ENCOUNTER 2022-11-18 04:46 | Emergency (ER) | payer OTHER, MEDICAID ==
[2022-11-18 05:22] LABS: #Basophils 0.1 thou/uL (0.0-0.2); #Eosinphils 0.2 thou/uL (0.0-0.7); #Lymphocytes 2.2 thou/uL (1.20-3.40); #Monocytes 0.5 thou/uL (0.11-0.59); #Neutrophils 4.6 thou/uL (1.40-6.50); %Basophils 0.9 % (0.0-1.0); %Eosinophils 3.2 % (0.0-10.0); %Neutrophils 59.9 % (42.0-75.0); Hemoglobin 13.1 g/dL (12.0-16.0); Mean Corpuscular HGB CONC 34.7 g/dL (32.0-36.0); Mean Corpuscular Hemoglobin 31.1 pg (27.0-31.0); Mean Corpuscular Volume 89.8 fl (78.0-98.0); Mean Platelet Volume 7.7 fL (7.4-10.4); Platelet Count 262 10x3/uL (130-400); RBC Distribution Width 12.6 % (11.5-14.5); Red Blood Cell (RBC) Count 4.21 mill/uL (4.20-5.40); White Blood Cell (WBC) Count 7.6 10x3/uL (4.8-10.8)
[2022-11-18 05:47] LABS: ALT (SGPT) 25 U/L (8-55); AST (SGOT) 26 U/L (5-34); Albumin 4.1 g/dL (3.5-5.0); Alkaline Phosphatase 101 U/L (40-110); Anion Gap 15 mmol/L (10-20); BUN (Urea Nitrogen) 35 mg/dL (9.8-20.1); Bilirubin, Total 0.7 mg/dL (0.2-1.2); Calc. Creatinine Clearance 0 mL/min (70-130); Calcium 9.7 mg/dL (7.8-10.44); Carbon Dioxide 26 mmol/L (22-29); Chloride 102 mmol/L (98-107); Estimated GFR 34; Globulin 3.7 g/dL (2.4-3.5); Glucose 200 mg/dL (70-105); Potassium 3.9 mmol/L (3.5-5.1); Protein, Total 7.8 g/dL (6.0-8.3); Sodium 139 mmol/L (136-145)
== END 2022-11-18 06:39 | disposition home or self-care (01) ==
LOC: ERS 04:46
DX: E16.2 Hypoglycemia, unspecified (principal); I11.0 Hypertensive heart disease with heart failure; I50.9 Heart failure, unspecified; E11.9 Type 2 diabetes mellitus without complications; K21.9 Gastro-esophageal reflux disease without esophagitis; Z79.899 Other long term (current) drug therapy; Z79.4 Long term (current) use of insulin
CPT/HCPCS: 36415; 36416; 70450; 80053; 85025; 96374

== ENCOUNTER 2022-11-18 07:50 | Outpatient (CLI) | payer OTHER, MEDICAID | END 2022-11-18 07:51 | disposition home or self-care (01) | LOC: BICMAMMO 07:50 | PROVIDERS: ATTEND Family Medicine | DX: Z12.31 Encounter for screening mammogram for malignant neoplasm of breast (principal) | CPT/HCPCS: 77063; 77067 ==

== ENCOUNTER 2023-06-05 06:53 | Emergency (ER) | payer OTHER, MEDICAID ==
[2023-06-05 08:01] LABS: #Eosinphils 0.2 thou/uL (0.0-0.7); #Monocytes 0.8 thou/uL (0.11-0.59); #Neutrophils 1.3 thou/uL (1.40-6.50); %Basophils 0.7 % (0.0-1.0); %Eosinophils 4.8 % (0.0-10.0); %Lymphocytes 44.1 % (21.0-51.0); %Monocytes 18.2 % (0.0-10.0); %Neutrophils 32.2 % (42.0-75.0); Hematocrit 38.2 % (36.0-47.0); Hemoglobin 13.2 g/dL (12.0-16.0); Mean Corpuscular HGB CONC 34.6 g/dL (32.0-36.0); Mean Corpuscular Hemoglobin 30.6 pg (27.0-31.0); Mean Corpuscular Volume 88.4 fl (78.0-98.0); Mean Platelet Volume 10.4 fL (7.4-10.4); Platelet Count 202 10x3/uL (130-400); RBC Distribution Width 12.7 % (11.5-14.5); Red Blood Cell (RBC) Count 4.32 mill/uL (4.20-5.40); White Blood Cell (WBC) Count 4.1 10x3/uL (4.8-10.8)
[2023-06-05] MEDS ORDERED: Ketorolac Tromethamine 30 MG/ML VIAL ONE (08:14)
[2023-06-05 08:25] LABS: ALT (SGPT) 14 U/L (8-55); AST (SGOT) 25 U/L (5-34); Alkaline Phosphatase 87 U/L (40-110); Anion Gap 14 mmol/L (10-20); BUN (Urea Nitrogen) 39 mg/dL (9.8-20.1); Bilirubin, Total 0.5 mg/dL (0.2-1.2); Calc. Creatinine Clearance 0 mL/min (70-130); Calcium 9.1 mg/dL (7.8-10.44); Carbon Dioxide 26 mmol/L (23-31); Chloride 100 mmol/L (98-107); Estimated GFR 28; Globulin 3.6 g/dL (2.4-3.5); Glucose 85 mg/dL (80-115); Potassium 3.7 mmol/L (3.5-5.1); Protein, Total 7.6 g/dL (5.8-8.1); Sodium 136 mmol/L (136-145)
[2023-06-05 08:30] LABS: Troponin I 0.072 ng/mL (< 0.028)
[2023-06-05 08:34] LABS: SARS-CoV-2 NAA Rapid Test Not Detected (NotDetected)
[2023-06-05 09:16] LABS: Bacteria/HPF 1+ HPF (None Seen); Bilirubin Negative (Negative); Blood, Urine Negative (Negative); CAUTI Indications for Culture Pelvic or flank pain; Clarity Clear (Clear); Glucose, Urine (Dipstick) Normal (Negative); Ketone, Urine Negative (Negative); Leukocyte 75 Leu/uL (Negative); Nitrite Negative (Negative); Protein, Urine (Dipstick) Negative (Neg-Trace); RBC/HPF 0-3 HPF (0-3); Squamous Epithelial 0-3 HPF (0-3); Urobilinogen Normal mg/dL (Less than 2); WBC/HPF 0-3 HPF (0-3)
[2023-06-05 09:17] LABS: Urine Culture Reflex No No
[2023-06-05] MEDS ORDERED: Aspirin 325 MG TAB ONE (10:08)
[2023-06-05 10:40] LABS: Troponin I 0.076 ng/mL (< 0.028)
[2023-06-05] MEDS ORDERED: Oseltamivir 75 MG CAP PO SCH (11:45)
== END 2023-06-05 13:10 | disposition home or self-care (01) ==
LOC: ERS 06:53
DX: N17.9 Acute kidney failure, unspecified (principal); J10.1 Influenza due to other identified influenza virus with other respiratory manifestations; R07.81 Pleurodynia; I11.0 Hypertensive heart disease with heart failure; I50.9 Heart failure, unspecified; E11.9 Type 2 diabetes mellitus without complications; K21.9 Gastro-esophageal reflux disease without esophagitis; Z20.822 Contact with and (suspected) exposure to COVID-19; Z79.4 Long term (current) use of insulin; Z79.899 Other long term (current) drug therapy
CPT/HCPCS: 0240U; 71045; 80053; 81001; 83880; 84484 ×2; 85025; 93005; 96360; 96372; J1885

== ENCOUNTER 2023-07-18 01:56 | Emergency (ER) | payer MEDICARE, MEDICAID ==
[2023-07-18] MEDS ORDERED: Ketorolac Tromethamine 30 MG (1 mL) VIAL ONE (03:04)
[2023-07-18] MEDS ORDERED: predniSONE 20 MG TAB ONE (04:54)
== END 2023-07-18 05:03 | disposition home or self-care (01) ==
LOC: ERS 01:56
DX: M19.072 Primary osteoarthritis, left ankle and foot (principal); M25.561 Pain in right knee
CPT/HCPCS: 96372; J1885; J7512

== ENCOUNTER 2023-08-02 22:06 | Inpatient (IN) | payer OTHER, MEDICAID ==
[2023-08-02 22:39] LABS: Hematocrit 35.7 % (36.0-47.0); Hemoglobin 12.4 g/dL (12.0-16.0); Manual Diff?? YES; Mean Corpuscular HGB CONC 34.7 g/dL (32.0-36.0); Mean Corpuscular Hemoglobin 30.2 pg (27.0-31.0); Mean Corpuscular Volume 86.9 fl (78.0-98.0); Mean Platelet Volume 10.1 fL (7.4-10.4); Platelet Count 186 10x3/uL (130-400); RBC Distribution Width 13.1 % (11.5-14.5); Red Blood Cell (RBC) Count 4.11 mill/uL (4.20-5.40); White Blood Cell (WBC) Count 11.2 10x3/uL (4.8-10.8)
[2023-08-02 22:40] LABS: Delete Auto Diff?? YES
[2023-08-02] MEDS ORDERED: predniSONE 20 MG TAB ONE (22:40)
[2023-08-02] MEDS ORDERED: diphenhydrAMINE 25 MG CAP ONE (22:40)
[2023-08-02] MEDS ORDERED: Famotidine 20 MG TAB ONE ×2 (22:40→22:41)
[2023-08-02 23:03] LABS: Band 4 % (5-11); CellaVision Operator ID lab.abc; Eosinophils 13 % (0-10); Large Platelets 4.9 % (0-5); Lymphocytes 19 % (21-51); Monocytes 4 % (0-10); Myelocyte 1 % (0-0); Neutrophil 47 % (42-75); Nucleated RBC (Manual Ct) 1 % (0); Platelet Adequacy Comment Platelets Normal; RBC Morphology Within Normal Limits; Reactive Lymphocytes 13 % (0-10); Smudge Cells 19.6 %; Total Cell Count 102
[2023-08-02 23:06] LABS: ALT (SGPT) 319 U/L (8-55); AST (SGOT) 185 U/L (5-34); Albumin 3.6 g/dL (3.4-4.8); Alkaline Phosphatase 277 U/L (40-110); Anion Gap 15 mmol/L (10-20); BUN (Urea Nitrogen) 40 mg/dL (9.8-20.1); Bilirubin, Total 3.9 mg/dL (0.2-1.2); Calc. Creatinine Clearance 0 mL/min (70-130); Calcium 9.2 mg/dL (7.8-10.44); Carbon Dioxide 24 mmol/L (23-31); Chloride 95 mmol/L (98-107); Estimated GFR 15; Globulin 3.4 g/dL (2.4-3.5); Glucose 122 mg/dL (80-115); Potassium 4.1 mmol/L (3.5-5.1); Sodium 130 mmol/L (136-145)
[2023-08-03 00:53] LABS: Bilirubin Large (Negative); Blood, Urine Trace (Negative); Glucose, Urine (Dipstick) 100 mg/dL (Negative); Ketone, Urine 15 mg/dL (Negative); Leukocyte Trace (Negative); Nitrite Positive (Negative); Protein, Urine (Dipstick) Trace mg/dL (Neg-Trace)
[2023-08-03 00:58] LABS: Clarity Hazy (Clear)
[2023-08-03 01:03] LABS: Bacteria/HPF None Seen HPF (None Seen); CAUTI Indications for Culture Dysuria,urgency,freq; WBC/HPF 21-50 HPF (0-3)
[2023-08-03 01:04] LABS: Specific Gravity, Urine 1.027 (1.002-1.036)
[2023-08-03 01:05] LABS: Urine Culture Reflex Yes Yes
[2023-08-03] MEDS ORDERED: Ondansetron ODT 4 MG TAB PO PRN (02:26)
[2023-08-03] MEDS ORDERED: HumaLOG 300 UNITS/3 ML VIAL SC PRN (02:31)
[2023-08-03] MEDS ORDERED: Dextrose 50% Abboject 50 ML SYRINGE SLOW IVP PRN (02:31)
[2023-08-03] MEDS ORDERED: Glucagon 1 MG/ML KIT IM PRN (02:31)
[2023-08-03] MEDS ORDERED: Dextrose 5% in Water 1,000 ML IV PRN (02:31)
[2023-08-03 03:02] LABS: INR-International Normal Ratio 1.2; PTT 35.5 sec (22.9-36.1); Prothrombin Time 15.1 sec (12.0-14.7)
[2023-08-03] MEDS ORDERED: Cefepime 1 GM in Sodium Chloride 0.9% 100 ML IVPB SCH (04:00)
[2023-08-03] MEDS ORDERED: Sodium Chloride 0.9% 100 ML ONE (04:32)
[2023-08-03] MEDS ORDERED: Cefepime 1 GM VIAL ONE (04:32)
[2023-08-03 04:33] LABS: Hematocrit 33.6 % (36.0-47.0); Hemoglobin 11.9 g/dL (12.0-16.0); Manual Diff?? YES; Mean Corpuscular HGB CONC 35.4 g/dL (32.0-36.0); Mean Corpuscular Hemoglobin 30.6 pg (27.0-31.0); Mean Corpuscular Volume 86.4 fl (78.0-98.0); Mean Platelet Volume 10.9 fL (7.4-10.4); Platelet Count 172 10x3/uL (130-400); RBC Distribution Width 13.1 % (11.5-14.5); Red Blood Cell (RBC) Count 3.89 mill/uL (4.20-5.40); White Blood Cell (WBC) Count 10.4 10x3/uL (4.8-10.8)
[2023-08-03 04:41] LABS: Delete Auto Diff?? YES
[2023-08-03 04:47] LABS: ALT (SGPT) 301 U/L (8-55); AST (SGOT) 160 U/L (5-34); Albumin 3.4 g/dL (3.4-4.8); Alkaline Phosphatase 271 U/L (40-110); Anion Gap 18 mmol/L (10-20); BUN (Urea Nitrogen) 43 mg/dL (9.8-20.1); Bilirubin, Total 3.5 mg/dL (0.2-1.2); Calc. Creatinine Clearance 0 mL/min (70-130); Carbon Dioxide 20 mmol/L (23-31); Chloride 94 mmol/L (98-107); Estimated GFR 13; Globulin 3.6 g/dL (2.4-3.5); Glucose 151 mg/dL (80-115); Iron 60 ug/dL (50-170); Iron Binding Capacity, Total 234 mcg/dL (265-497); Lipase 25 U/L (8-78); Potassium 4.1 mmol/L (3.5-5.1); Sodium 128 mmol/L (136-145)
[2023-08-03 05:12] LABS: HBSAg Index 0.17 S/CO (0-0.99); Hep B Surf Ag Non-Reactive S/CO (NonReactive); Hep C IgG Ab Non-Reactive S/CO (NonReactive); Hep C Index 0.05 S/CO (0-0.79)
[2023-08-03 05:13] LABS: Hep A IgM AB Non-Reactive S/CO (NonReactive); Hep A IgM S/CO 0.37 S/CO (0-0.79)
[2023-08-03 05:14] LABS: Band 6 % (5-11); CellaVision Operator ID lab.abc; Eosinophils 3 % (0-10); HBCM Index 0.13 S/CO (0-0.79); Hepatitis B Core IgM Abs Non-Reactive S/CO (NonReactive); Large Platelets 5.9 % (0-5); Lymphocytes 12 % (21-51); Monocytes 4 % (0-10); Neutrophil 65 % (42-75); Platelet Adequacy Comment Platelets Normal; RBC Morphology Within Normal Limits; Reactive Lymphocytes 10 % (0-10); Smudge Cells 10.8 %; Total Cell Count 102
[2023-08-03] MEDS ORDERED: metroNIDAZOLE 500 MG (100 mL) BAG ONE (05:48)
[2023-08-03] MEDS: Sodium Chloride 0.9% 1,000 ML IV SCH ×2 (06:00→14:28)
[2023-08-03] MEDS: metroNIDAZOLE 500 MG in Premix 1 BAG IVPB SCH ×3 (06:00→21:06)
[2023-08-03 06:55] LABS: Ferritin 2803.37 ng/mL (10-291)
[2023-08-03] MEDS: Cefepime 1 GM in Sodium Chloride 0.9% 100 ML IVPB SCH (07:30)
[2023-08-03] MEDS: Heparin 5,000 UNITS/ML VIAL SC SCH ×3 (08:38→21:41)
[2023-08-03] MEDS: Famotidine 20 MG TAB PO SCH (08:38)
[2023-08-03 12:38] VITALS: BMI 33.5
[2023-08-03] MEDS: HumaLOG 300 UNITS/3 ML VIAL SC PRN ×2 (13:09→18:12)
[2023-08-03] MEDS: hydrOXYzine 10 MG/5 ML SYRUP UDCUP PO PRN (14:50)
[2023-08-03 19:33] LABS: Creatinine, Urine 312.72 mg/dL (47-110)
[2023-08-03] MEDS: diphenhydrAMINE 25 MG CAP PO PRN (21:37)
[2023-08-04] MEDS ORDERED: Sodium Chloride 0.9% 100 ML ONE (03:07)
[2023-08-04] MEDS: Cefepime 1 GM in Sodium Chloride 0.9% 100 ML IVPB SCH (03:20)
[2023-08-04] MEDS: Sodium Chloride 0.9% 1,000 ML IV SCH ×2 (03:21→08:45)
[2023-08-04] MEDS: metroNIDAZOLE 500 MG in Premix 1 BAG IVPB SCH ×2 (05:34→14:03)
[2023-08-04 05:39] LABS: Hematocrit 30.4 % (36.0-47.0); Hemoglobin 10.5 g/dL (12.0-16.0); Manual Diff?? YES; Mean Corpuscular HGB CONC 34.5 g/dL (32.0-36.0); Mean Corpuscular Hemoglobin 30.3 pg (27.0-31.0); Mean Corpuscular Volume 87.9 fl (78.0-98.0); Mean Platelet Volume 10.8 fL (7.4-10.4); Platelet Count 170 10x3/uL (130-400); RBC Distribution Width 13.2 % (11.5-14.5); Red Blood Cell (RBC) Count 3.46 mill/uL (4.20-5.40); White Blood Cell (WBC) Count 11.3 10x3/uL (4.8-10.8)
[2023-08-04 05:53] LABS: Calcium 8.6 mg/dL (7.8-10.44); Chloride 101 mmol/L (98-107); Potassium 3.3 mmol/L (3.5-5.1); Sodium 133 mmol/L (136-145)
[2023-08-04 06:04] LABS: Albumin 3.1 g/dL (3.4-4.8); Delete Auto Diff?? YES
[2023-08-04 06:07] LABS: Glucose 165 mg/dL (80-115); Protein, Total 6.1 g/dL (5.8-8.1)
[2023-08-04 06:08] LABS: Carbon Dioxide 21 mmol/L (23-31)
[2023-08-04 06:09] LABS: Bilirubin, Total 2.4 mg/dL (0.2-1.2); HIV (1/2) Antibody/Antigen Non-Reactive (NonReactive); HIV 1/2 INDEX 0.16 S/CO (<1.00)
[2023-08-04 06:10] LABS: Alkaline Phosphatase 284 U/L (40-110); Calc. Creatinine Clearance 26 mL/min (70-130); Estimated GFR 17
[2023-08-04 06:11] LABS: BUN (Urea Nitrogen) 49 mg/dL (9.8-20.1)
[2023-08-04 06:12] LABS: AST (SGOT) 119 U/L (5-34)
[2023-08-04 06:13] LABS: ALT (SGPT) 229 U/L (8-55)
[2023-08-04 06:42] LABS: Anion Gap 14 mmol/L (10-20)
[2023-08-04 06:43] LABS: Anisocytosis SLIGHT = 6-15 cells HPF (0-5); Band 12 % (5-11); CellaVision Operator ID LAB.JMM; Elliptocytes SLIGHT = 2-5 cells HPF (0-1); Eosinophils 6 % (0-10); Lymphocytes 15 % (21-51); Monocytes 1 % (0-10); Neutrophil 63 % (42-75); Platelet Adequacy Comment Platelets Normal; Polychromasia SLIGHT = 2-3 cells HPF (0-2); Reactive Lymphocytes 3 % (0-10); Smudge Cells 16.8 %; Total Cell Count 101
[2023-08-04] MEDS: Heparin 5,000 UNITS/ML VIAL SC SCH ×3 (08:22→20:42)
[2023-08-04] MEDS: Famotidine 20 MG TAB PO SCH (08:22)
[2023-08-04] MEDS ORDERED: Potassium Chloride 20 MEQ TAB PO SCH (10:15)
[2023-08-04] MEDS ORDERED: Albuterol 200 PUFF (6.7GM INHALER) INH PRN (11:58)
[2023-08-04] MEDS ORDERED: Dulaglutide [Trulicity] 1.5 MG/0.5 ML Pen.Inj SC SCH (12:15)
[2023-08-04] MEDS: Metoprolol Tartrate 100 MG TAB PO SCH (20:41)
[2023-08-04] MEDS: Latanoprost 0.005% Ophth Soln 2.5 ml Bottle EA EYE SCH (20:42)
[2023-08-04 23:47] LABS: Acetaminophen Less than 10 mcg/mL (10.0-30.0); Salicylate Less than 8.0 mg/dL (15.0-30.0)
[2023-08-05] MEDS: Sodium Chloride 0.9% 1,000 ML IV SCH ×3 (03:15→11:55)
[2023-08-05 05:11] LABS: Amphetamine Not Detected (NotDetected); Barbiturates Screen Not Detected (NotDetected); Benzodiazepine Screen Not Detected (NotDetected); Cocaine Metabolite Screen Not Detected (NotDetected); Methadone Not Detected (NotDetected); Methamphetamine Not Detected (NotDetected); Opiate Screen Not Detected (NotDetected); Oxycodone Screen Not Detected (NotDetected); Phencyclidine (PCP) Not Detected (NotDetected); THC/Cannabinoid Screen Detected (NotDetected); Tricyclic Screen Not Detected (NotDetected)
[2023-08-05 06:19] LABS: Hematocrit 30.4 % (36.0-47.0); Hemoglobin 10.5 g/dL (12.0-16.0); Manual Diff?? YES; Mean Corpuscular HGB CONC 34.5 g/dL (32.0-36.0); Mean Corpuscular Hemoglobin 29.8 pg (27.0-31.0); Mean Corpuscular Volume 86.4 fl (78.0-98.0); Mean Platelet Volume 11.1 fL (7.4-10.4); Platelet Count 177 10x3/uL (130-400); RBC Distribution Width 13.5 % (11.5-14.5); Red Blood Cell (RBC) Count 3.52 mill/uL (4.20-5.40); White Blood Cell (WBC) Count 12.3 10x3/uL (4.8-10.8)
[2023-08-05 06:33] LABS: Delete Auto Diff?? YES
[2023-08-05 06:50] LABS: ALT (SGPT) 176 U/L (8-55); AST (SGOT) 94 U/L (5-34); Albumin 2.7 g/dL (3.4-4.8); Alkaline Phosphatase 296 U/L (40-110); Anion Gap 10 mmol/L (10-20); BUN (Urea Nitrogen) 30 mg/dL (9.8-20.1); Bilirubin, Total 4.2 mg/dL (0.2-1.2); Calc. Creatinine Clearance 46 mL/min (70-130); Calcium 8.2 mg/dL (7.8-10.44); Carbon Dioxide 22 mmol/L (23-31); Chloride 103 mmol/L (98-107); Estimated GFR 33; Globulin 2.6 g/dL (2.4-3.5); Glucose 106 mg/dL (80-115); Potassium 4.3 mmol/L (3.5-5.1); Protein, Total 5.3 g/dL (5.8-8.1); Sodium 131 mmol/L (136-145)
[2023-08-05 07:29] LABS: Band 7 % (5-11); CellaVision Operator ID LAB.KW3; Eosinophils 9 % (0-10); Lymphocytes 9 % (21-51); Monocytes 10 % (0-10); Neutrophil 63 % (42-75); Platelet Adequacy Comment Platelets Normal; RBC Morphology Within Normal Limits; Reactive Lymphocytes 2 % (0-10); Total Cell Count 100
[2023-08-05] MEDS ORDERED: Ergocalciferol 1.25 MG(50,000 UNITS) CAP PO SCH (09:00)
[2023-08-05] MEDS: Famotidine 20 MG TAB PO SCH (09:09)
[2023-08-05] MEDS: Aspirin 81 mg Enteric Coated Tablet PO SCH (09:09)
[2023-08-05] MEDS: Heparin 5,000 UNITS/ML VIAL SC SCH ×3 (09:09→21:18)
[2023-08-05] MEDS: Metoprolol Tartrate 100 MG TAB PO SCH ×2 (09:09→21:21)
[2023-08-05] MEDS: hydrOXYzine 10 MG/5 ML SYRUP UDCUP PO PRN (11:16)
[2023-08-05 11:56] LABS: ANA Symphony (Qualitative) Negative (Negative); ANA Symphony (Quantitative) 0.2 Ratio (< 0.7 Negative); dsDNA IgG Antibody 0.9 IU/mL (<10 Negative)
[2023-08-05] MEDS: HumaLOG 300 UNITS/3 ML VIAL SC PRN (12:43)
[2023-08-05] MEDS: Latanoprost 0.005% Ophth Soln 2.5 ml Bottle EA EYE SCH (21:17)
[2023-08-05] MEDS: diphenhydrAMINE 25 MG CAP PO PRN (21:27)
[2023-08-06] MEDS: Sodium Chloride 0.9% 1,000 ML IV SCH ×2 (01:50→15:19)
[2023-08-06 08:17] LABS: Adenovirus F 40-41 Not Detected (Not Detected); Astrovirus Not Detected (Not Detected); C. difficile toxin A+B Not Detected (Not Detected); Campylobacter by PCR Not Detected (Not Detected); Cryptosporidium Not Detected (Not Detected); Cyclospora cayetanensis Not Detected (Not Detected); Entamoeba histolytica Not Detected (Not Detected); Enteroaggregative E. coli Not Detected (Not Detected); Enteropathogenic E. coli Not Detected (Not Detected); Enterotoxigenic E. coli Not Detected (Not Detected); Giardia lamblia Not Detected (Not Detected); Norovirus GI-GII Not Detected (Not Detected); Plesiomonas shigelloides Not Detected (Not Detected); Rotavirus A Not Detected (Not Detected); Salmonella Not Detected (Not Detected); Sapovirus Not Detected (Not Detected); Shiga-toxin-producing E coli Not Detected (Not Detected); Shigella/Enteroinvasive E coli Not Detected (Not Detected); Vibrio Not Detected (Not Detected); Vibrio cholerae Not Detected (Not Detected); Yersinia enterocolitica Not Detected (Not Detected)
[2023-08-06] MEDS: Heparin 5,000 UNITS/ML VIAL SC SCH ×3 (08:30→20:47)
[2023-08-06] MEDS: Famotidine 20 MG TAB PO SCH (08:31)
[2023-08-06] MEDS: Metoprolol Tartrate 100 MG TAB PO SCH ×2 (08:31→20:47)
[2023-08-06] MEDS: Aspirin 81 mg Enteric Coated Tablet PO SCH (08:31)
[2023-08-06] MEDS ORDERED: methylPREDNISolone Sod Succ 40 MG VIAL IVP SCH (11:15)
[2023-08-06] MEDS: hydrOXYzine 10 MG/5 ML SYRUP UDCUP PO PRN (11:35)
[2023-08-06 12:01] LABS: Hematocrit 30.3 % (36.0-47.0); Hemoglobin 10.5 g/dL (12.0-16.0); Manual Diff?? YES; Mean Corpuscular HGB CONC 34.7 g/dL (32.0-36.0); Mean Corpuscular Hemoglobin 29.7 pg (27.0-31.0); Mean Corpuscular Volume 85.8 fl (78.0-98.0); Mean Platelet Volume 10.4 fL (7.4-10.4); Platelet Count 181 10x3/uL (130-400); RBC Distribution Width 13.8 % (11.5-14.5); Red Blood Cell (RBC) Count 3.53 mill/uL (4.20-5.40); White Blood Cell (WBC) Count 14.9 10x3/uL (4.8-10.8)
[2023-08-06 12:07] LABS: Delete Auto Diff?? YES
[2023-08-06 12:20] LABS: Complement-C3 129 mg/dL (83-193); Complement-C4 37 mg/dL (15-57)
[2023-08-06 12:39] LABS: ALT (SGPT) 150 U/L (8-55); AST (SGOT) 99 U/L (5-34); Albumin 2.7 g/dL (3.4-4.8); Alkaline Phosphatase 301 U/L (40-110); Anion Gap 10 mmol/L (10-20); BUN (Urea Nitrogen) 23 mg/dL (9.8-20.1); Bilirubin, Total 5.4 mg/dL (0.2-1.2); Calc. Creatinine Clearance 50 mL/min (70-130); Calcium 7.8 mg/dL (7.8-10.44); Carbon Dioxide 18 mmol/L (23-31); Chloride 102 mmol/L (98-107); Estimated GFR 37; Globulin 2.6 g/dL (2.4-3.5); Glucose 113 mg/dL (80-115); Potassium 3.8 mmol/L (3.5-5.1); Protein, Total 5.3 g/dL (5.8-8.1); Sodium 126 mmol/L (136-145)
[2023-08-06 12:55] LABS: Band 9 % (5-11); CellaVision Operator ID LAB.KB; Eosinophils 18 % (0-10); Lymphocytes 10 % (21-51); Monocytes 6 % (0-10); Neutrophil 54 % (42-75); Platelet Adequacy Comment Platelets Normal; Polychromasia SLIGHT = 2-3 cells HPF (0-2); Reactive Lymphocytes 4 % (0-10); Smudge Cells 14.9 %; Total Cell Count 101
[2023-08-06] MEDS: HumaLOG 300 UNITS/3 ML VIAL SC PRN (17:49)
[2023-08-06] MEDS: Latanoprost 0.005% Ophth Soln 2.5 ml Bottle EA EYE SCH (20:47)
[2023-08-06] MEDS: diphenhydrAMINE 25 MG CAP PO PRN (21:22)
[2023-08-07] MEDS: HumaLOG 300 UNITS/3 ML VIAL SC PRN ×3 (06:33→16:29)
[2023-08-07] MEDS: Metoprolol Tartrate 100 MG TAB PO SCH (08:49)
[2023-08-07] MEDS: Aspirin 81 mg Enteric Coated Tablet PO SCH (08:49)
[2023-08-07] MEDS: Heparin 5,000 UNITS/ML VIAL SC SCH (08:49)
[2023-08-07] MEDS: Famotidine 20 MG TAB PO SCH (08:50)
[2023-08-07] MEDS ORDERED: methylPREDNISolone Sod Succ 40 MG VIAL IVP SCH (09:00)
[2023-08-07 10:13] LABS: Norovirus GI Negative (Negative); Norovirus GII Negative (Negative)
[2023-08-07 10:34] LABS: Hematocrit 30.1 % (36.0-47.0); Hemoglobin 10.5 g/dL (12.0-16.0); Manual Diff?? YES; Mean Corpuscular HGB CONC 34.9 g/dL (32.0-36.0); Mean Corpuscular Hemoglobin 29.9 pg (27.0-31.0); Mean Corpuscular Volume 85.8 fl (78.0-98.0); Mean Platelet Volume 10.2 fL (7.4-10.4); Platelet Count 206 10x3/uL (130-400); RBC Distribution Width 14.2 % (11.5-14.5); Red Blood Cell (RBC) Count 3.51 mill/uL (4.20-5.40); White Blood Cell (WBC) Count 20.7 10x3/uL (4.8-10.8)
[2023-08-07] MEDS: hydrOXYzine 10 MG/5 ML SYRUP UDCUP PO PRN (10:34)
[2023-08-07 10:53] LABS: ALT (SGPT) 135 U/L (8-55); AST (SGOT) 58 U/L (5-34); Albumin 2.9 g/dL (3.4-4.8); Alkaline Phosphatase 366 U/L (40-110); Anion Gap 14 mmol/L (10-20); BUN (Urea Nitrogen) 29 mg/dL (9.8-20.1); Bilirubin, Total 3.1 mg/dL (0.2-1.2); Calc. Creatinine Clearance 47 mL/min (70-130); Calcium 8.5 mg/dL (7.8-10.44); Carbon Dioxide 19 mmol/L (23-31); Chloride 102 mmol/L (98-107); Estimated GFR 33; Glucose 179 mg/dL (80-115); Potassium 3.7 mmol/L (3.5-5.1); Protein, Total 5.9 g/dL (5.8-8.1); Sodium 131 mmol/L (136-145)
[2023-08-07 10:57] LABS: Delete Auto Diff?? YES
[2023-08-07 12:44] LABS: Band 3 % (5-11); CellaVision Operator ID LAB.KB; Eosinophils 16 % (0-10); Large Platelets 7.9 % (0-5); Lymphocytes 2 % (21-51); Monocytes 2 % (0-10); Neutrophil 75 % (42-75); Platelet Adequacy Comment Platelets Normal; Polychromasia SLIGHT = 2-3 cells HPF (0-2); Reactive Lymphocytes 2 % (0-10); Total Cell Count 101
[2023-08-07 16:08] VITALS: BP 117/67; TEMP 97.5
[2023-08-09 19:38] LABS: Cytoplasmic (C-ANCA) <1:20 titer (Neg:<1:20); Myeloperoxidase AutoAbs <0.2 units (0.0-0.9); Perinuclear (P-ANCA) <1:20 titer (Neg:<1:20); Proteinase-3 AutoAbs Less than 0.2 units (0.0-0.9)
== END 2023-08-07 17:03 | disposition left against medical advice (07) | DRG 683 ==
LOC: ERS 22:06 → ERHOLD 08-03 02:26 → T4-B 08-03 07:37
PROVIDERS: ADMIT Internal Medicine; ATTEND Hospitalist
DX: N17.9 Acute kidney failure, unspecified (principal); E87.1 Hypo-osmolality and hyponatremia; E87.20 Acidosis, unspecified; N39.0 Urinary tract infection, site not specified; R21 Rash and other nonspecific skin eruption; L29.9 Pruritus, unspecified; N25.81 Secondary hyperparathyroidism of renal origin; L50.9 Urticaria, unspecified; E11.22 Type 2 diabetes mellitus with diabetic chronic kidney disease; E66.9 Obesity, unspecified; E88.09 Other disorders of plasma-protein metabolism, not elsewhere classified; R19.7 Diarrhea, unspecified; N18.30 Chronic kidney disease, stage 3 unspecified; D72.829 Elevated white blood cell count, unspecified; I12.9 Hypertensive chronic kidney disease with stage 1 through stage 4 chronic kidney disease, or unspecified chronic kidney disease; E87.6 Hypokalemia; Z79.899 Other long term (current) drug therapy; Z79.82 Long term (current) use of aspirin; Z79.51 Long term (current) use of inhaled steroids; Z79.84 Long term (current) use of oral hypoglycemic drugs; Z79.4 Long term (current) use of insulin; Z90.710 Acquired absence of both cervix and uterus; Z68.33 Body mass index [BMI] 33.0-33.9, adult
CPT/HCPCS: 36415; 36416; 74176; 74181; 76700; 80053; 80074; 80143; 80179; 80306; 81001; 82306; 82525; 82570; 82595; 82728; 83010; 83516; 83540; 83550; 83615; 83630; 83690; 83880; 83970; 84156; 85025; 85046; 85610; 85730; 86015; 86037; 86038; 86140; 86160; 86225; 87015; 87040; 87086; 87206; 87324; 87389; 87449; 87507; 87798; 96365; 80307; J0692; J1644; J1815; J2920; J3490; J7050; J7512

== ENCOUNTER 2024-03-09 07:49 | Outpatient (CLI) | payer OTHER, MEDICAID | END 2024-03-09 07:50 | disposition home or self-care (01) | LOC: BICMAMMO 07:49 | PROVIDERS: ATTEND Family Medicine | DX: Z12.31 Encounter for screening mammogram for malignant neoplasm of breast (principal) | CPT/HCPCS: 77063; 77067 ==

== ENCOUNTER 2024-03-26 08:45 | Outpatient (CLI) | payer OTHER, MEDICAID | END 2024-03-26 08:46 | disposition home or self-care (01) | LOC: RAD 08:45 | PROVIDERS: ATTEND Internal Medicine Critical Care Medicine | DX: R06.00 Dyspnea, unspecified (principal); R91.8 Other nonspecific abnormal finding of lung field; J84.9 Interstitial pulmonary disease, unspecified | CPT/HCPCS: 71046 ==

== ENCOUNTER 2024-05-18 08:05 | Outpatient (CLI) | payer OTHER, MEDICAID | END 2024-05-18 08:06 | disposition home or self-care (01) | LOC: BICCT 08:05 | PROVIDERS: ATTEND Internal Medicine Critical Care Medicine | DX: J84.9 Interstitial pulmonary disease, unspecified (principal); J84.10 Pulmonary fibrosis, unspecified | CPT/HCPCS: 71250 ==

== ENCOUNTER 2024-05-26 10:01 | Emergency (ER) | payer OTHER, MEDICAID ==
[2024-05-26 11:21] LABS: #Basophils 0.05 10x3/uL (0.0-0.2); %Basophils 0.9 % (0.0-1.0); %Lymphocytes 35.4 % (21.0-51.0); %Monocytes 10.2 % (0.0-10.0); %Neutrophils 48.3 % (42.0-75.0); Hematocrit 43.1 % (36.0-47.0); Hemoglobin 14.4 g/dL (12.0-16.0); Mean Corpuscular HGB CONC 33.4 g/dL (32.0-36.0); Mean Corpuscular Hemoglobin 29.6 pg (27.0-31.0); Mean Corpuscular Volume 88.7 fL (78.0-98.0); Platelet Count 278 10x3/uL (130-400); RBC Distribution Width 13.4 % (11.5-14.5); Red Blood Cell (RBC) Count 4.86 mill/uL (4.20-5.40)
[2024-05-26 11:36] LABS: ALT (SGPT) 14 U/L (8-55); AST (SGOT) 18 U/L (5-34); Albumin 3.6 g/dL (3.4-4.8); Alkaline Phosphatase 118 U/L (40-110); Anion Gap 12 mmol/L (10-20); BUN (Urea Nitrogen) 26 mg/dL (9.8-20.1); Bilirubin, Total 1.1 mg/dL (0.2-1.2); Calc. Creatinine Clearance 0 mL/min (70-130); Calcium 9.3 mg/dL (7.8-10.44); Carbon Dioxide 26 mmol/L (23-31); Chloride 107 mmol/L (98-107); Estimated GFR 51; Globulin 3.8 g/dL (2.4-3.5); Glucose 133 mg/dL (80-115); Lipase 34 U/L (8-78); Potassium 4.7 mmol/L (3.5-5.1); Protein, Total 7.4 g/dL (5.8-8.1); Sodium 140 mmol/L (136-145)
[2024-05-26 11:41] LABS: Troponin I 0.061 ng/mL (< 0.028)
== END 2024-05-26 12:23 | disposition home or self-care (01) ==
LOC: ERS 10:01
DX: J18.9 Pneumonia, unspecified organism (principal); I10 Essential (primary) hypertension; E11.9 Type 2 diabetes mellitus without complications; Z79.4 Long term (current) use of insulin; Z79.82 Long term (current) use of aspirin; Z79.899 Other long term (current) drug therapy
CPT/HCPCS: 36415; 71045; 80053; 83690; 84484; 85025; 93005

== ENCOUNTER 2025-01-15 07:25 | Outpatient (CLI) | payer OTHER | END 2025-01-15 07:26 | disposition home or self-care (01) | LOC: BICCT 07:25 | PROVIDERS: ATTEND Internal Medicine Critical Care Medicine | DX: J84.9 Interstitial pulmonary disease, unspecified (principal); J84.10 Pulmonary fibrosis, unspecified | CPT/HCPCS: 71250 ==

== ENCOUNTER 2025-06-04 08:02 | Outpatient (CLI) | payer OTHER | END 2025-06-04 08:03 | disposition home or self-care (01) | LOC: BICMAMMO 08:02 | PROVIDERS: ATTEND Family Medicine | DX: Z12.31 Encounter for screening mammogram for malignant neoplasm of breast (principal) | CPT/HCPCS: 77063; 77067 ==